=== PATIENT | male | born 2000 | race Caucasian/White ===

== ENCOUNTER 2020-09-12 20:55 | Emergency (ER) | payer OTHER ==
[~2020-09-12] VITALS: Ht 170.2 cm; Wt 68.2 kg
--- NOTE | 2020-09-12 22:38 | REPVR ---
PROCEDURE INFORMATION: Exam: XR Chest, 2 Views Exam date and time: 09/12/2020 10:18 PM Age: 20 years old Clinical indication: Other: Dizziness; Additional info: Near syncope TECHNIQUE: Imaging protocol: XR of the chest Views: 2 views. COMPARISON: No relevant prior studies available. FINDINGS: Lungs: Unremarkable. No consolidation. Pleural spaces: Unremarkable. No pleural effusion. No pneumothorax. Heart/Mediastinum: Unremarkable. No cardiomegaly. Bones/joints: Unremarkable. IMPRESSION: Negative chest. Electronically signed by: Mateusz Martin On 09/12/2020 22:38:15 PM
[2020-09-12 22:53] LABS: BASO # 0.1 10^3/uL (0.0-0.2); BASO % 0.7 % (0.0-1.0); EOS # 0.2 10^3/uL (0.0-0.5); EOS % 2.8 % (0.0-3.0); HEMATOCRIT 40.5 % (42.0-52.0); HEMOGLOBIN 13.4 g/dl (13.5-17.5); LYMPH # 2.5 10^3/uL (1.5-5.0); LYMPH % 35.8 % (24.0-44.0); MEAN CORPUSCULAR HEMOGLOBIN 29.3 pg (27.0-33.0); MEAN CORPUSCULAR HGB CONC 33.1 g/dl (32.0-36.5); MEAN CORPUSCULAR VOLUME 88.4 fl (80.0-96.0); MONO # 0.7 10^3/uL (0.0-0.8); MONO % 9.6 % (2.0-8.0); NEUTROPHILS # 3.5 10^3/uL (1.5-8.5); NEUTROPHILS % 50.8 % (36.0-66.0); PLATELET COUNT, AUTOMATED 326 10^3/uL (150-450); RED BLOOD COUNT 4.58 10^6/uL (4.30-6.10); WHITE BLOOD COUNT 6.9 10^3/uL (4.0-10.0)
[2020-09-12 23:17] LABS: BLOOD UREA NITROGEN 13 MG/DL (7-18); CALCIUM LEVEL 9.2 MG/DL (8.5-10.1); CARBON DIOXIDE LEVEL 30 MEQ/L (21-32); CHLORIDE LEVEL 104 MEQ/L (98-107); CREATININE FOR GFR 1.11 MG/DL (0.70-1.30); GLOMERULAR FILTRATION RATE > 60.0 (>60); GLUCOSE, FASTING 94 MG/DL (70-100); SODIUM LEVEL 141 MEQ/L (136-145)
[2020-09-12 23:52] VITALS: BP 117/69
--- NOTE | 2020-09-13 05:19 | ECGEPIP ---
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
== END 2020-09-12 23:53 | disposition home or self-care (01) ==
LOC: M ED 20:55 → EDBD 20:55 → M ED 23:53
DX: R55 Syncope and collapse (principal)

== ENCOUNTER 2020-12-23 20:37 | Emergency (ER) | payer OTHER ==
[~2020-12-23] VITALS: Ht 167.6 cm; Wt 65.2 kg
[2020-12-23 20:38] VITALS: BP 141/83
--- NOTE | 2020-12-23 23:08 | REPVR ---
PROCEDURE INFORMATION: Exam: US Pelvis Limited, Transabdominal, Soft tissue Exam date and time: 12/23/2020 10:24 PM Age: 20 years old Clinical indication: Mass, lump, or swelling; Lower quadrant, right; Additional info: Lump in right groin TECHNIQUE: Imaging protocol: Real-time transabdominal pelvic ultrasound with image documentation. Limited exam. Exam focused on the soft tissue. COMPARISON: No relevant prior studies available. FINDINGS: Soft tissues: Unremarkable. No masses or collections in visualized area. Lymph nodes: Multiple lymph nodes in the right groin in the region of palpable lump with the largest measuring 1.9 x 0.6 x 0.9 cm. IMPRESSION: Multiple lymph nodes in the right groin in the region of palpable lump with the largest measuring 1.9 x 0.6 x 0.9 cm. Electronically signed by: Yousif Blum On 12/23/2020 23:08:24 PM
== END 2020-12-24 00:32 | disposition home or self-care (01) ==
LOC: M ED 20:37
DX: R59.0 Localized enlarged lymph nodes (principal); Z88.8 Allergy status to other drugs, medicaments and biological substances

== ENCOUNTER 2021-01-09 19:30 | Emergency (ER) | payer OTHER ==
[~2021-01-09] VITALS: Ht 170.2 cm; Wt 66.4 kg
[2021-01-09] MEDS ORDERED: ALLE180T33 PO (19:45)
[2021-01-09] MEDS: ALBUTEROL 90 MCG/ACT 8GM HFA INHALER INH ONE (23:57)
[2021-01-10 00:17] VITALS: BP 145/86
== END 2021-01-10 00:18 | disposition home or self-care (01) ==
LOC: M ED 19:30
DX: J45.909 Unspecified asthma, uncomplicated (principal); Z88.8 Allergy status to other drugs, medicaments and biological substances

== ENCOUNTER 2022-04-18 17:40 | Emergency (ER) | payer OTHER ==
[~2022-04-18] VITALS: Ht 170.2 cm; Wt 86.0 kg
[~2022-04-18 17:40] MED LIST: ALLE180T33 PO
[2022-04-18 20:02] LABS: BASO # 0.1 10^3/uL (0.0-0.2); BASO % 0.9 % (0.0-1.0); EOS # 0.2 10^3/uL (0.0-0.5); EOS % 2.1 % (0.0-3.0); HEMATOCRIT 47.4 % (42.0-52.0); HEMOGLOBIN 15.8 g/dl (13.5-17.5); LYMPH # 2.4 10^3/uL (1.5-5.0); LYMPH % 33.3 % (24.0-44.0); MEAN CORPUSCULAR HEMOGLOBIN 29.4 pg (27.0-33.0); MEAN CORPUSCULAR HGB CONC 33.3 g/dl (32.0-36.5); MEAN CORPUSCULAR VOLUME 88.1 fl (80.0-96.0); MONO # 0.6 10^3/uL (0.0-0.8); MONO % 7.8 % (2.0-8.0); NEUTROPHILS # 3.9 10^3/uL (1.5-8.5); NEUTROPHILS % 55.8 % (36.0-66.0); PLATELET COUNT, AUTOMATED 330 10^3/uL (150-450); RED BLOOD COUNT 5.38 10^6/uL (4.30-6.10); WHITE BLOOD COUNT 7.1 10^3/uL (4.0-10.0)
[2022-04-18 20:27] LABS: ERYTHROCYTE SEDIMENTATION RATE 2 mm/hr (0-15)
[2022-04-18 20:43] LABS: BLOOD UREA NITROGEN 13 MG/DL (7-18); CALCIUM LEVEL 9.7 MG/DL (8.5-10.1); CARBON DIOXIDE LEVEL 27 MEQ/L (21-32); CHLORIDE LEVEL 105 MEQ/L (98-107); CREATININE FOR GFR 1.21 MG/DL (0.70-1.30); GLOMERULAR FILTRATION RATE > 60.0 (>60); GLUCOSE, FASTING 118 MG/DL (70-100); MAGNESIUM LEVEL 2.3 MG/DL (1.8-2.4); POTASSIUM SERUM 4.1 MEQ/L (3.5-5.1); SODIUM LEVEL 138 MEQ/L (136-145)
[2022-04-18 21:49] LABS: AMPHETAMINES LEVEL URINE NEGATIVE (NEGATIVE); BARBITURATES URINE NEGATIVE (NEGATIVE); BENZODIAZEPINES URINE NEGATIVE (NEGATIVE); CANNABINOIDS URINE NEGATIVE (NEGATIVE); COCAINE METABOLITE URINE NEGATIVE (NEGATIVE); METHADONE URINE NEGATIVE (NEGATIVE); OPIATES URINE NEGATIVE (NEGATIVE); PHENCYCLIDINE URINE NEGATIVE (NEGATIVE)
[2022-04-18 23:16] VITALS: BP 129/63
== END 2022-04-18 23:28 | disposition home or self-care (01) ==
LOC: M ED 17:40
DX: R51.9 Headache, unspecified (principal); M54.2 Cervicalgia; F17.200 Nicotine dependence, unspecified, uncomplicated; Z88.6 Allergy status to analgesic agent

== ENCOUNTER 2022-12-14 15:45 | Emergency (ER) | payer OTHER ==
[~2022-12-14] VITALS: Ht 170.2 cm; Wt 73.9 kg
[2022-12-14 17:12] LABS: BASO # 0.1 10^3/uL (0.0-0.2); BASO % 0.6 % (0.0-1.0); EOS # 0.2 10^3/uL (0.0-0.5); HEMATOCRIT 43.1 % (42.0-52.0); HEMOGLOBIN 15.5 g/dl (13.5-17.5); LYMPH # 2.1 10^3/uL (1.5-5.0); LYMPH % 21.2 % (24.0-44.0); MEAN CORPUSCULAR HEMOGLOBIN 31.1 pg (27.0-33.0); MEAN CORPUSCULAR VOLUME 86.5 fl (80.0-96.0); MONO # 0.8 10^3/uL (0.0-0.8); MONO % 7.7 % (2.0-8.0); NEUTROPHILS # 6.7 10^3/uL (1.5-8.5); NEUTROPHILS % 68.2 % (36.0-66.0); PLATELET COUNT, AUTOMATED 388 10^3/uL (150-450); RED BLOOD COUNT 4.98 10^6/uL (4.30-6.10); WHITE BLOOD COUNT 9.8 10^3/uL (4.0-10.0)
[2022-12-14 17:39] LABS: LIPASE 83 U/L (12-53)
[2022-12-14 17:41] LABS: ALBUMIN 3.9 G/DL (3.2-5.2); ALKALINE PHOSPHATASE 92 U/L (46-116); ALT/SGPT 47 U/L (7.0-40); AST/SGOT 18 U/L (<34); BILIRUBIN,DIRECT < 0.1 MG/DL (<0.4); BILIRUBIN,TOTAL 0.3 MG/DL (0.3-1.2); BLOOD UREA NITROGEN 12 MG/DL (9-23); CALCIUM LEVEL 9.4 MG/DL (8.5-10.1); CARBON DIOXIDE LEVEL 29 MMOL/L (20-31); CHLORIDE LEVEL 104 MMOL/L (98-107); CREATININE FOR GFR 0.99 MG/DL (0.70-1.30); GLOMERULAR FILTRATION RATE > 60.0 (>60); GLUCOSE, FASTING 110 MG/DL (60-100); POTASSIUM SERUM 4.3 MMOL/L (3.5-5.1); SODIUM LEVEL 140 MMOL/L (136-145); TOTAL PROTEIN 7.3 G/DL (5.7-8.2)
[2022-12-14] MEDS ORDERED: ZINC220CA PO (18:42)
[2022-12-14] MEDS ORDERED: VITA100054 PO (18:42)
[2022-12-14] MEDS ORDERED: VITA250T4 PO (18:42)
[2022-12-14] MEDS ORDERED: NS 1,000 ML IV ONE (19:05)
[2022-12-14] MEDS: GASTROGRAFIN SOLUTION 30ML PO SCH ×2 (19:49→20:16)
[2022-12-14] MEDS ORDERED: ISOVUE-370 76% 100ML VIAL As Ordered ONE (21:09)
[2022-12-14] MEDS ORDERED: predniSONE 20 MG TAB PO ONE (23:25)
[2022-12-14] MEDS ORDERED: AUGMENTIN 875 MG TAB PO ONE (23:25)
[2022-12-14] MEDS ORDERED: PRED20TA PO (23:27)
[2022-12-14] MEDS ORDERED: AMOX875T2 PO (23:27)
[2022-12-15 00:24] VITALS: BP 131/61
== END 2022-12-15 00:25 | disposition home or self-care (01) ==
LOC: M ED 15:45
DX: K52.9 Noninfective gastroenteritis and colitis, unspecified (principal); Z88.6 Allergy status to analgesic agent; Z79.2 Long term (current) use of antibiotics; Z79.52 Long term (current) use of systemic steroids; Z79.899 Other long term (current) drug therapy
CPT/HCPCS: 74177; 80048; 80076; 81001; 83690; 85025; 87507; 96360; 96361; 99284; J7512; Q9963; Q9967

== ENCOUNTER 2023-01-21 07:48 | Day surgery (SDC) | payer OTHER ==
[~2023-01-21] VITALS: Ht 170.2 cm; Wt 70.8 kg
[~2023-01-21 07:48] MED LIST changes: +AMOX875T2 PO; +NS 1,000 ML IV ONE; +PRED20TA PO; +VITA100054 PO; +VITA250T4 PO; +ZINC220CA PO
[2023-01-21] MEDS ORDERED: propofoL 200 MG/20 ML VIAL As Ordered ONE ×2 (09:49→10:28)
[2023-01-21 10:16] VITALS: TEMP 96.5; O2SAT 94
[2023-01-21 10:46] VITALS: BP 117/68
== END 2023-01-21 10:48 | disposition home or self-care (01) ==
LOC: M OPP 07:48
PROVIDERS: ATTEND Internal Medicine Gastroenterology
DX: K64.4 Residual hemorrhoidal skin tags (principal); K64.8 Other hemorrhoids; K52.9 Noninfective gastroenteritis and colitis, unspecified; K92.1 Melena; F17.200 Nicotine dependence, unspecified, uncomplicated

== ENCOUNTER 2023-09-19 09:34 | Day surgery (SDC) | payer OTHER ==
[~2023-09-19] VITALS: Ht 170.2 cm; Wt 67.6 kg
[~2023-09-19 09:34] MED LIST changes: +GALZ50CA PO; +MESA1.2T PO; -NS 1,000 ML IV ONE; +OMEG10002 PO; +PROBCAP14 PO; +VITA100093 PO; +VITA500C24 PO
[2023-09-19] MEDS: NS 1,000 ML IV ONE (10:07)
[2023-09-19 11:46] VITALS: TEMP 99
[2023-09-19 12:15] VITALS: BP 125/61; O2SAT 99
== END 2023-09-19 12:20 | disposition home or self-care (01) ==
LOC: M OPP 09:34
PROVIDERS: ATTEND Internal Medicine Gastroenterology
DX: K63.5 Polyp of colon (principal); K52.89 Other specified noninfective gastroenteritis and colitis; K51.00 Ulcerative (chronic) pancolitis without complications; F17.290 Nicotine dependence, other tobacco product, uncomplicated; Z79.891 Long term (current) use of opiate analgesic; Z79.899 Other long term (current) drug therapy; Z88.6 Allergy status to analgesic agent; Z88.8 Allergy status to other drugs, medicaments and biological substances